=== PATIENT | female | born 1990 | race African-American/Black ===

== ENCOUNTER 2021-06-08 21:22 | Emergency (ER) | payer BC ==
[2021-06-08 21:29] VITALS: BP 130/86; PULSE 80; TEMP 98; BMI 27.4
[2021-06-08] MEDS ORDERED: ACETAMINOPHEN 500 MG TABLET (FP) PO ONE (22:06)
[2021-06-08] MEDS ORDERED: ACETAMINOPHEN 500 MG TABLET (FP) ONE ×2 (22:12→22:25)
[2021-06-08 22:13] LABS: EOS % 1.5 % (0-4.5); HEMATOCRIT 42.1 % (32.4-45.2); HEMOGLOBIN 14.4 GM/dL (10.7-15.3); LYMPH % 39.7 % (8-40); MCH 32.9 pg (25.7-33.7); MCHC 34.3 g/dl (32.0-36.0); MEAN CELL VOLUME 95.8 fl (80-96); MEAN PLT VOLUME 8.1 fl (7.5-11.1); MONO % 13.7 % (3.8-10.2); NEUT % 44.1 % (42.8-82.8); PLATELET COUNT 231 10^3/uL (134-434); RBC 4.39 M/mm3 (3.60-5.2); RDW 14.1 % (11.6-15.6)
[2021-06-08 22:26] LABS: BLOOD UREA NITROGEN 10.8 mg/dL (7-18)
[2021-06-08 22:29] LABS: CREATININE 0.8 mg/dL (0.55-1.3)
[2021-06-08 22:31] LABS: BILIRUBIN,TOTAL 0.3 mg/dL (0.2-1); TOT PROT 7.6 g/dl (6.4-8.2)
[2021-06-08 22:37] LABS: ACTIVATED PTT 34.4 SECONDS (25.2-36.5); INR 1.13 (0.83-1.09)
== END 2021-06-08 23:28 | disposition home or self-care (01) ==
LOC: JER 21:22
DX: R04.2 Hemoptysis (principal); M54.6 Pain in thoracic spine
CPT/HCPCS: 36415; 71046-TC-FY; 80053; 84703; 85025; 85379; 85610; 85730; 93005; 93010; 99285-25

== ENCOUNTER 2022-03-02 09:45 | Emergency (ER) | payer BC, OTHER ==
[2022-03-02 10:19] VITALS: BMI 29.7
[2022-03-02] MEDS ORDERED: SODIUM CHLORIDE 1,000 ML IV STA (10:30)
[2022-03-02] MEDS ORDERED: FAMOTIDINE 20 MG/50 ML IVPB 20 MG/50 ML MG IVPB ONE ×2 (10:30→10:43)
[2022-03-02] MEDS ORDERED: MAG HYDROX/AL HYDROX/SIMETH -MYLANTA- ORAL SUSPENSION PO ONE (10:31)
[2022-03-02] MEDS ORDERED: MAG HYDROX/AL HYDROX/SIMETH 30 ML UNIT-DOSE CUP ONE (10:43)
[2022-03-02 11:24] LABS: PH,URINE 5.5 (5.0-8.0); URINE APPEARANCE CLEAR; URINE BILIRUBIN NEGATIVE (NEGATIVE); URINE COLOR YELLOW; URINE GLUCOSE (UA) NEGATIVE (NEGATIVE); URINE KETONE TRACE (NEGATIVE); URINE LEUK ESTERASE NEGATIVE (NEGATIVE); URINE NITRITE NEGATIVE (NEGATIVE); URINE PROTEIN NEGATIVE (NEGATIVE); URINE UROBILINOGEN 0.2 mg/dL (0.2-1.0)
[2022-03-02 11:25] LABS: EOS % 1.6 % (0-4.5); HEMATOCRIT 41.3 % (32.4-45.2); HEMOGLOBIN 13.9 GM/dL (10.7-15.3); LYMPH % 41.3 % (8-40); MCH 31.8 pg (25.7-33.7); MCHC 33.7 g/dl (32.0-36.0); MEAN CELL VOLUME 94.1 fl (80-96); MEAN PLT VOLUME 8.5 fl (7.5-11.1); MONO % 12.9 % (3.8-10.2); NEUT % 43.2 % (42.8-82.8); PLATELET COUNT 281 10^3/uL (134-434); RBC 4.39 M/mm3 (3.60-5.2); RDW 12.2 % (11.6-15.6); WHITE BLOOD COUNT 5.2 K/mm3 (4.0-10.0)
[2022-03-02 11:35] LABS: HCG,QUALITATIVE URINE Negative
[2022-03-02 11:46] LABS: CALCIUM 9.7 mg/dL (8.5-10.1)
[2022-03-02 11:47] LABS: BLOOD UREA NITROGEN 9.8 mg/dL (7-18)
[2022-03-02 11:50] LABS: CREATININE 0.9 mg/dL (0.55-1.3)
[2022-03-02 11:51] LABS: BILIRUBIN,TOTAL 0.4 mg/dL (0.2-1); TOT PROT 8.1 g/dl (6.4-8.2)
[2022-03-02 14:27] VITALS: BP 125/78; PULSE 85; RESP 16; TEMP 98.1
== END 2022-03-02 14:30 | disposition home or self-care (01) ==
LOC: JER 09:45
PROC: 3E033GC Introduction of Other Therapeutic Substance into Peripheral Vein, Percutaneous Approach (ICD-10-PCS; principal; 2022-03-02)
DX: K80.20 Calculus of gallbladder without cholecystitis without obstruction (principal)
CPT/HCPCS: 36415; 76705-TC; 80053; 81003; 82150; 83690; 84703; 85025; 87086; 87186; 93005; 93010; 99285-25

== ENCOUNTER 2022-04-27 09:50 | Emergency (ER) | payer BC, OTHER ==
[2022-04-27 10:03] VITALS: BP 142/92; PULSE 90; RESP 18; TEMP 98.4; BMI 28.2
== END 2022-04-27 15:45 | disposition home or self-care (01) ==
LOC: JERFT 09:50 → JER 09:50 → JERFT 15:45
DX: N64.4 Mastodynia (principal)
CPT/HCPCS: 76641-TC-50; 84703; 99284-25